=== PATIENT | male | born 1965 | race Caucasian/White ===

== ENCOUNTER 2020-02-26 05:37 | Inpatient (IN) ==
[2020-02-26] MEDS ORDERED: 0.9 % Sodium Chloride 1,000 ML IVC ONE (05:49)
[2020-02-26] MEDS ORDERED: 0.9 % Sodium Chloride 2,000 ML ONE (05:53)
[2020-02-26] MEDS ORDERED: *HR* FentaNYL (PF) 100 MCG/2 ML VIAL ONE (05:53)
[2020-02-26] MEDS ORDERED: *HR* Midazolam HCl 2 MG/2 ML VIAL ONE (05:53)
[2020-02-26] MEDS ORDERED: Tirofiban 12.5 MG/250ML 12.5 MG/250 ML BAG ONE (05:54)
[2020-02-26] MEDS ORDERED: ISOVUE-370 200 ML INFUS..BTL ONE (05:54)
[2020-02-26] MEDS ORDERED: *HR* Heparin 10,000 UNIT/10 ML VIAL ONE (05:54)
[2020-02-26] MEDS ORDERED: Nitroglycerin 1,000 MCG/10 ML VIAL IV ONE (05:54)
[2020-02-26] MEDS ORDERED: Heparin 1,000 UNITS/500 mL 500 ML ONE (05:54)
[2020-02-26] MEDS ORDERED: *HR* Heparin 5,000 UNIT/ML VIAL IVP PRN ×2 (05:55)
[2020-02-26] MEDS ORDERED: *HR* Ticagrelor 90 MG TABLET PO ONE (05:55)
[2020-02-26] MEDS ORDERED: *HR* Heparin 5,000 UNIT/ML VIAL IVP ONE (05:55)
[2020-02-26] MEDS ORDERED: Heparin 25,000UNIT/250ML 1/2NS 25,000 UNIT/250 ML IV.SOLN IVC SCH (06:00)
[2020-02-26 06:03] LABS: Basophils # 0.1 K/mcL (0.0-0.2); Basophils % 0.6 %; Eosinophils # 0.3 K/mcL (0.0-0.6); Eosinophils % 3.4 %; Hematocrit 46.4 % (37.5-50.1); Hemoglobin 14.9 g/dL (12.9-16.9); Immature Granulocytes % 0.5 % (0-4); Lymphocytes # 2.6 K/mcL (0.6-4.6); Lymphocytes % 29.1 %; Mean Corpuscular HGB Conc 32.1 g/dL (31.6-35.5); Mean Corpuscular Hemoglobin 27.8 pg (28.0-33.3); Mean Corpuscular Volume 86.6 fL (83.0-100.0); Mean Platelet Volume 9.8 fL (9.4-12.4); Monocytes # 0.6 K/mcL (0.0-1.3); Monocytes % 6.8 %; Neutrophils # 5.3 K/mcL (1.6-8.9); Platelet Count 249 K/mcL (140-400); Red Blood Count 5.36 M/mcL (4.19-5.50); Red Cell Distribution Width 12.9 % (11.5-14.5); Segmented Neutrophils % 59.6 %; White Blood Count 8.8 K/mcL (4.3-11.1)
[2020-02-26 06:07] LABS: Prothrombin Time 11.4 Seconds (9.4-12.1)
[2020-02-26 06:09] LABS: Activated Partial Thrombo Time 28.7 Seconds (26.0-36.0)
[2020-02-26] MEDS ORDERED: Perflutren Lipid Microsphere 1.3 ML in 0.9 % Sodium Chloride 8.7 ML IVP PRN (06:12)
[2020-02-26] MEDS ORDERED: Tirofiban 12.5 MG/250ML 12.5 MG/250 ML BAG IVC SCH (06:15)
[2020-02-26 06:23] LABS: Chol/HDL Ratio 5.7 (0-4.9)
[2020-02-26 06:34] LABS: BUN/Creatinine Ratio 23 (6-26); Blood Urea Nitrogen 19 mg/dL (6-20); Calcium 9.3 mg/dL (8.6-10.3); Carbon Dioxide 25 mEq/L (23-29); Chloride 109 mEq/L (98-107); Glucose 146 mg/dL (70-105); Magnesium 1.9 mg/dL (1.6-2.6); Osmolality,Calculated 297 (280-300); Potassium 4.2 mEq/L (3.5-5.1); Sodium 141 mEq/L (136-145); Troponin I 0.64 ng/mL (< 0.04); eGFR For African Americans > 60 (> 60); eGFR For Non-African Americans > 60 (> 60)
[2020-02-26] MEDS: Aspirin 81 MG TAB.CHEW PO SCH (10:18)
[2020-02-26] MEDS ORDERED: Metoprolol XL (24 HR) Succ 25 MG TAB.ER.24H PO SCH (13:15)
[2020-02-26] MEDS ORDERED: Magnesium Sulfate 1 GM/102 ML PIGGYBACK IVPB ONE (16:27)
[2020-02-26] MEDS ORDERED: Metoprolol XL (24 HR) Succ 25 MG TAB.ER.24H PO ONE (16:56)
[2020-02-26] MEDS: *HR* Heparin 5,000 UNIT/ML VIAL SQ SCH (17:10)
[2020-02-26] MEDS: *HR* Ticagrelor 90 MG TABLET PO SCH (20:56)
[2020-02-27 05:27] LABS: Basophils # 0.1 K/mcL (0.0-0.2); Basophils % 0.6 %; Eosinophils # 0.2 K/mcL (0.0-0.6); Eosinophils % 2.4 %; Hematocrit 43.1 % (37.5-50.1); Immature Granulocytes % 0.5 % (0-4); Lymphocytes % 23.7 %; Mean Corpuscular HGB Conc 32.5 g/dL (31.6-35.5); Mean Corpuscular Hemoglobin 28.3 pg (28.0-33.3); Mean Corpuscular Volume 87.2 fL (83.0-100.0); Monocytes # 0.6 K/mcL (0.0-1.3); Monocytes % 7.6 %; Neutrophils # 5.4 K/mcL (1.6-8.9); Platelet Count 203 K/mcL (140-400); Red Blood Count 4.94 M/mcL (4.19-5.50); Segmented Neutrophils % 65.2 %; White Blood Count 8.3 K/mcL (4.3-11.1)
[2020-02-27 05:46] LABS: BUN/Creatinine Ratio 20 (6-26); Blood Urea Nitrogen 15 mg/dL (6-20); Calcium 8.9 mg/dL (8.6-10.3); Carbon Dioxide 26 mEq/L (23-29); Chloride 107 mEq/L (98-107); Glucose 111 mg/dL (70-105); Osmolality,Calculated 288 (280-300); Potassium 3.9 mEq/L (3.5-5.1); Sodium 138 mEq/L (136-145); eGFR For African Americans > 60 (> 60); eGFR For Non-African Americans > 60 (> 60)
[2020-02-27] MEDS: *HR* Heparin 5,000 UNIT/ML VIAL SQ SCH ×2 (06:17→17:39)
[2020-02-27] MEDS: *HR* Ticagrelor 90 MG TABLET PO SCH ×2 (08:47→19:58)
[2020-02-27] MEDS: Aspirin 81 MG TAB.CHEW PO SCH (08:47)
[2020-02-27] MEDS ORDERED: Metoprolol XL (24 HR) Succ 25 MG TAB.ER.24H PO SCH (09:00)
[2020-02-27] MEDS ORDERED: Acetaminophen 325 MG TABLET PO PRN (14:21)
[2020-02-28] MEDS: *HR* Heparin 5,000 UNIT/ML VIAL SQ SCH (06:12)
[2020-02-28] MEDS: *HR* Ticagrelor 90 MG TABLET PO SCH (08:10)
[2020-02-28] MEDS: Aspirin 81 MG TAB.CHEW PO SCH (08:10)
[2020-02-28] MEDS ORDERED: Metoprolol XL (24 HR) Succ 25 MG TAB.ER.24H PO SCH (09:00)
[2020-02-28 11:45] VITALS: BP 108/79
== END 2020-02-28 15:08 | disposition home or self-care (01) | DRG 246 ==
LOC: EMEROOARM 05:37 → 2NENU 06:18
PROVIDERS: ADMIT Family Medicine; ATTEND Family Medicine